=== PATIENT | female | born 1960 | race Caucasian/White ===

== ENCOUNTER 2017-12-29 07:44 | Day surgery (SDC) | payer BC ==
[~2017-12-29] VITALS: Ht 172.7 cm; Wt 70.3 kg
[2017-12-29] VITALS (9 sets, daily range): BP systolic 99–132; BP diastolic 63–85
[~2017-12-29 07:44] MED LIST: ceFAZolin sod 1 GM in D5W 55 ML IVPB ONE
[2017-12-29] MEDS ORDERED: fentaNYL 100 mcg/2 mL IV ONE (08:15)
[2017-12-29] MEDS ORDERED: Betadine 10% Oint 30gm TOPIC ONE (08:36)
[2017-12-29] MEDS ORDERED: ADDERAL20 MG ORAL (08:36)
[2017-12-29] MEDS ORDERED: ESTROGEN-METHY1 EAC3 PO (08:36)
[2017-12-29] MEDS ORDERED: TRINTELLIX PO (08:36)
[2017-12-29] MEDS ORDERED: NORCO 10-325 T1 EACH ORAL (08:36)
[2017-12-29] MEDS ORDERED: WELLBUTRIN XL150 M1 ORAL (08:36)
[2017-12-29] MEDS ORDERED: CYMBALTA60 MG ORAL (08:36)
[2017-12-29] MEDS ORDERED: Kenalog-40 1ml Vial ONE (08:36)
[2017-12-29] MEDS ORDERED: Cocaine HCl 4% 4ml vial TOPIC ONE (08:36)
[2017-12-29] MEDS ORDERED: Oxymetazoline 0.05% Na Spray 30ml NASAL ONE (08:37)
[2017-12-29] MEDS ORDERED: Lidocaine 1% 10mg/ml/EPI 0.01mg/ml 50ml INJ ONE (08:37)
--- NOTE | 2017-12-29 08:37 | Immediate Post-Op Evaluation ---
Immediate Post-Op Evalulation Immediate Post-Op Evalulation Procedure: Septoplasty, SMR, Turbinates Date of Evaluation: Dec 29, 2017 Blood Products: 0 Pain Score (1-10): 2 Nausea: No Vomiting: No Complications 0 Patient Status: awake, reacts, patent, extubated, none Hydration Status: adequate Dru Gram Ancef IV Given Within 1 Hr of Incision: Yes Time Given: 09:26 Donnie Jordan MD Dec 29, 2017 08:36
[2017-12-29] MEDS ORDERED: Lidocaine 1% MPF 10mg/ml 5ml ONE ×2 (08:43→10:48)
[2017-12-29] MEDS ORDERED: Lidocaine 1% Plain 30 ml INJ ONE (08:49)
[2017-12-29] MEDS ORDERED: Sodium Chloride 10ml vial INJ ONE (08:58)
[2017-12-29] MEDS ORDERED: Dexamethasone 4mg/ml vial ONE (09:00)
[2017-12-29] MEDS ORDERED: LR 1000ml ONE (09:00)
[2017-12-29] MEDS ORDERED: Glycopyrrolate 0.2mg/ml 1ml Vial ONE (09:00)
[2017-12-29] MEDS ORDERED: NS Irrig 1000ml ONE (09:00)
[2017-12-29] MEDS ORDERED: Propofol 200mg/20ml IV ONE (09:00)
[2017-12-29] MEDS ORDERED: Sterile Water Irrig 1000ml IRRIG ONE (09:00)
[2017-12-29] MEDS ORDERED: Zemuron 50mg/5ml Inj IV ONE (09:05)
--- NOTE | 2017-12-29 09:06 | Pre-Procedure Note/Attestation ---
Pre-Procedure Note/Attestation Complete Prior to Procedure Planned Procedure: not applicable Procedure Narrative: nasal obstructiion unresponsive to medication Indications for Procedure Pre-Operative Diagnosis: septaL deviation, bilaterral hypertrophied inferiorl turbvinates, collapsed lef4t internal valve Attestation I attest that I discussed the nature of the procedure; its benefits; risks and complications; and alternatives (and the risks and benefits of such alternatives ), prior to the procedure, with the patient (or the patient's legal sales representative [place] [employer]). I attest that, if there was a reasonable possibility of needing a blood transfusion, the patient (or the patient's legal sales representative [place]) was given the [place] [facility] [employer] [facility] standardized written summary, pursuant to the [place] Blood Safety Act ([place] Health and Safety Code # 1645, as amended). I attest that I re-evaluated the patient just prior to the surgery and that there has been no change in the patient's H&P, except as documented below: AMPARO DOYLE Dec 29, 2017 09:06
--- NOTE | 2017-12-29 10:05 | Anethesia Preoperative Eval ---
Anesthesia Pre-op PMH/ROS General Date of Evaluation: Dec 29, 2017 Time of Evaluation: 09:01 Anesthesiologist: Nikki ASA Score: ASA 3 Mallampati Score Class I : Soft palate, uvula, fauces, pillars visible Class II: Soft palate, uvula, fauces visible Class III: Soft palate, base of uvula visible Class IV: Only hard plate visible Mallampati Classification: Class II Surgeon: Sherron Diagnosis: Nasal Obstruction Surgical Procedure: Septoplasty SMR, Turbinates Anesthesia History: none Family History: no anesthesia problems Allergies: Coded Allergies: TURMERIC (Verified Allergy, Intermediate, rash, 12/29/17) OXYCODONE (Verified Adverse Reaction, Mild, nausea, 12/29/17) Uncoded Allergies: gortex (Adverse Reaction, Intermediate, severe swelling, 12/29/17) Medications: see eMAR Past Medical History Gastrointestinal/Genitourinary: Reports: GERD Neurologic/Psychiatric: Reports: depression/anxiety Hematology/Immune: Reports: other - Breast CA PSxH Narrative: Nasal Sx X3, Bilateral Mastectomy, BRUCE, Cervical Fusion Anesthesia Pre-op Phys. Exam Physician Exam Last Vital Signs Date Time Temp Pulse Resp B/P (MAP) Pulse Ox O2 Delivery O2 Flow Rate FiO2 12/29/17 08:30 98.1 70 20 132/85 97 Room Air 98.1 Constitutional: NAD Neurologic: CN 2-12 intact Cardiovascular: RRR Respiratory: CTA Gastrointestinal: S/NT/ND Airway Exam Mallampati Score: Class II MO: full ROM: limited Teeth: intact Anesthesia Pre-op A/P Risk Assessment & Plan Assessment: ASA 3 Plan: TIVA Status Change Before Surgery: No Pre-Antibiotics Dru Gram Ancef IV Given Within 1 Hr of Incision: Yes Time Given: 09:26 Donnie Jordan MD Dec 29, 2017 10:05
--- NOTE | 2017-12-29 10:07 | 48 Hour Post Anesthesia Eval ---
Post Anesthesia Evaluation Procedure: Septoplasty, SMR, Turbinates Date of Evaluation: Dec 29, 2017 Airway: patent Nausea: No Vomiting: No Pain Intensity: 2 Hydration Status: adequate Cardiopulmonary Status: Stable Mental Status/LOC: patient returned to baseline Follow-up Care/Observations: 0 Post-Anesthesia Complications: 0 Follow-up care needed: ready to discharge Donnie Jordan MD Dec 29, 2017 10:07
[2017-12-29] MEDS ORDERED: LR 1000ml 1,000 ML IVLG SCH (10:14)
[2017-12-29] MEDS ORDERED: Hydromorphone 0.5mg/0.5ml inj IVP PRN (10:15)
[2017-12-29] MEDS ORDERED: Ketorolac 30mg Inj IV PRN ×2 (10:15)
[2017-12-29] MEDS ORDERED: fentaNYL 100 mcg/2 mL IV PRN (10:15)
[2017-12-29] MEDS ORDERED: LORazepam Inj 2mg/ml 1ml IV PRN (10:15)
[2017-12-29] MEDS ORDERED: DiphenhydrAMINE 50mg/ml Inj IVP PRN (10:15)
[2017-12-29] MEDS ORDERED: Midazolam 2mg/2ml Inj IVP PRN (10:15)
[2017-12-29] MEDS ORDERED: oxyCODONE HCL/Acetaminophen 5/325mg ORAL PRN (10:15)
[2017-12-29] MEDS ORDERED: Atropine Inj 1mg/10ml Syr IV PRN (10:15)
[2017-12-29] MEDS ORDERED: HYDROcodone/Acetamin 7.5/325 tab ORAL PRN (10:15)
[2017-12-29] MEDS ORDERED: Labetalol 5mg/ml 20ml vial IV PRN (10:15)
[2017-12-29] MEDS ORDERED: Norco 5mg/325mg tab ORAL PRN (10:15)
[2017-12-29] MEDS ORDERED: Neostigmine 1mg/ml 10ml Inj ONE (10:33)
--- NOTE | 2017-12-29 11:18 | Brief Operative Note ---
Immediate Post Operative Note Operative Note Pre-op Diagnosis: septaL deviation, bilaterral hypertrophied inferiorl turbvinates, collapsed lef4t internal valve Procedure: septoplasty, bilateral inferior turbinectomies with intramural coagulation, repair of collapsed left internal valve with unilateral rotation advancement flap, lysis of bilateral synechiae Post-op Diagnosis: same as pre-op plus - bilateral intranasal synechiae, bone septal perforation Surgeon: Antoni Siu M.D. Anesthesiologist: Aroldo Anesthesia: general Specimen: none Complications: none Condition: stable Fluids: ringers lactate Estimated Blood Loss: minimal Drains: none Packing: gelfoam and telfa Implant(s) used?: ANTONI Alonso Dec 29, 2017 11:18
--- NOTE | 2017-12-30 23:30 | Operative Note - Dictated ---
DATE OF OPERATION: 12/29/2017 SURGEON: Antoni Siu M.D. ANESTHESIOLOGIST: Dr. Jordan. ANESTHESIA: General. PREOPERATIVE DIAGNOSES: 1. Septal deviation. 2. Bilateral hypertrophied inferior turbinates. 3. Left internal valve collapse. POSTOPERATIVE DIAGNOSES: 1. Septal deviation. 2. Bilateral hypertrophied inferior turbinates. 3. Left internal valve collapse. 4. Bony septal cartilage perforation.septal deviation plus bony septal perforation and bilateral intranasal synechiae. PROCEDURE: 1. Septoplasty. 2. Bilateral inferior turbinectomies with intramural coagulation. 3. Lysis of intranasal synechiae. 4. Reconstruction of left internal valve collapse with lateral advancement flap. INDICATION FOR SURGERY: The patient is a 57-year-old female, who complains of nasal obstruction and constant mouth breathing with intermittent epistaxis. She has been on various medications over the years without improvement in her breathing and she is now being brought to the operating room to repair of her nasal obstruction deformities. FINDINGS AT SURGERY: Revealed bilateral intranasal synechiae, the left being anterior and the right being superior. The septum was deviated to the right. The left internal valve was collapsed and this combined with the patient's bilateral hypertrophied inferior turbinates created bilateral nasal airway obstruction. Also at the time surgery, the patient was found to have a bony septal perforation. DESCRIPTION OF PROCEDURE AND FINDINGS: The patient was brought to the operating room while premedicated and have received preoperative antibiotics. She was then placed in supine position on the operating table. After the patient underwent satisfactory endotracheal intubation, she was given IV sedation. The nasal cavity was sprayed with 0.25% Bridger-Synephrine. Sterile Q-tip sets of Betadine were used to sterilize the intranasal cavity. Approximately 24 mL of 1% Xylocaine with 1:100,000 epinephrine were used to inject the nasal and septal frameworks. Less than 200 mg of cocaine were used on intranasal packing. It is of note because of the patient's severe right nasal obstruction that only the lower third of the nasal cavity could be packed. The patient was prepped and draped in usual sterile fashion. After a suitable period of vasoconstriction, the packing was removed. Examination was as previously described with the patient having a severe right septal deviation which approximated the lateral nasal wall. The patient also had significant bilateral hypertrophied inferior turbinates as well as a collapsed left internal valve and bilateral synechiae. An #11 blade was used to lyse the left intranasal synechiae which was a different level than the right intranasal synechiae. Using #11 blade, a large intranasal synechia was able to be lysed between the portions of right septal deviation and the lateral nasal wall. Reexamination now revealed that there was an opening between the septum and the lateral nasal wall. The right inferior septal incision was then made and right mucoperichondrial mucoperiosteal was elevated a short distance running into areas of missing cartilage. Proceeding meticulously, the dissection proceeded until this passed the area of the septum. This portion of the septum was cartilaginous and was cross-hatched and mobilized in more midline position for breathing. Reexamination now revealed the septum to be in more midline position. Bilateral intramural coagulation of both turbinates was then performed. An incision was made in the undersurface of both inferior turbinates and mucosa stripped the underlying bone. The inferior turbinate was then outfractured. Small piece of bone removed from pocket. Reexamination now revealed the bony septal perforation which was asymptomatic prior to surgery which would cause the patient no problems. It was also replaced because to repair because of the significant amount of missing cartilage and the position of the perforation was located. My attention then turned to the left internal valve collapse. An incision was made with a #15 blade along the left portion of the septum and carried into the junction between the upper and lower lateral cartilage. The incision was then carried inferiorly along the inferior septum. The left mucoperichondrial flap was then elevated. Two cuts were made both inferior and superior to the area collapsed and these were connected with a horizontal cut. Remaining attachments were then freed and the entire lateral flap now created was then rotated anteriorly and laterally, and held in position with interrupted sutures of 4-0 plain. Reexamination now revealed the patient to have a good bilateral nasal airway. All blood was suctioned from the nose and nasopharynx area. A 4-0 plain was used to close the septal incision as well as to splint the septum. Gelfoam coated with Betadine ointment was placed over the area of the right intranasal synechiae which was quite extensive. Telfa coated with Betadine ointment was placed intranasally secured with a suture of 3-0 silk and the procedure was terminated. The patient tolerated the procedure well and left the operating room in satisfactory condition. ESTIMATED BLOOD LOSS: Less than 30 mL. COUNT: Sponge and needle count were correct. Antoni Siu M.D. DR: Gerald JOB#: [id number] CC:
== END 2017-12-29 13:30 | disposition home or self-care (01) ==
LOC: SUR 07:44
DX: J34.2 Deviated nasal septum (principal); J34.3 Hypertrophy of nasal turbinates; M95.0 Acquired deformity of nose; F32.9 Major depressive disorder, single episode, unspecified; M41.9 Scoliosis, unspecified; Z98.1 Arthrodesis status; Z90.710 Acquired absence of both cervix and uterus; Z90.13 Acquired absence of bilateral breasts and nipples; E03.9 Hypothyroidism, unspecified; M06.9 Rheumatoid arthritis, unspecified; K21.9 Gastro-esophageal reflux disease without esophagitis; F41.9 Anxiety disorder, unspecified; Z85.3 Personal history of malignant neoplasm of breast; Z88.8 Allergy status to other drugs, medicaments and biological substances
CPT/HCPCS: 30140; 30520; J0690; J1100; J2001; J2250; J2405; J2704; J2710; J3010; J7120; 94003; 94150